=== PATIENT | male | born 1955 | race Caucasian/White ===

== ENCOUNTER 2017-07-02 13:23 | Observation (INO) ==
[2017-07-02] MEDS ORDERED: LACTATED RINGERS 1,000 ML IV SCH (13:30)
--- NOTE | 2017-07-02 13:32 | Emergency Department Note ---
Neuro HPI - General Chief Complaint: Neuro Symptoms/Deficit Stated Complaint: Neuro deficit Time Seen by Provider: 07/02/17 13:26 Source: patient, family Mode of arrival: wheelchair Limitations: no limitations - History of Present Illness HPI Narrative: This patient had brain surgery 10 days ago with an extensive craniotomy for a right sided aneurysm repair. This morning he woke up with a little bit of numbness to the left side of his body and some shakiness. He does drink alcohol and his intake is supposed to be on the low side for the last week or so. He has had alcohol withdrawal seizures in the past. Has not had specific muscle weakness. No specific headache. - Related Data Home Medications: Home Medications Medication Instructions Recorded Confirmed Bacitracin [Bacitracin] 07/02/17 Potassium Chloride [K-Tab ER] 20 meq PO BID 07/02/17 07/02/17 levETIRAcetam [Levetiracetam] 1,000 mg PO BID 07/02/17 07/02/17 Allergies/Adverse Reactions: Allergies Allergy/AdvReac Type Severity Reaction Status Date / Time No Known Drug Allergies Allergy Verified 07/02/17 13:27 Review of Systems All systems ED: reviewed and negative except as stated. Past Medical History - Past Medical History [facility] Narrative: Medical History Abnormal laboratory test (Chronic) Tobacco use (Chronic) Benign prostate hyperplasia (Chronic) Basal cell carcinoma of skin of other parts of face (Chronic) Frequent urination (Chronic) Alcohol abuse (Chronic) Muscle weakness (Chronic) Stiffness in joint (Chronic) Joint pain (Chronic) Fatigue (Chronic) Insomnia (Chronic) Shoulder pain, left (Chronic) Degenerative disc disease, lumbar (Chronic) Neoplasm of uncertain behavior of skin (Chronic) Chronic obstructive pulmonary disease (Chronic) Hernia, inguinal, right (Chronic) History of meniscal tear (Chronic) Back pain (Chronic) Past Surgical History H/O hernia repair (Acute) H/O knee surgery (Chronic) History of back surgery (Chronic) Family History Mother Malignant neoplasm of breast Malignant neoplasm of lung Sister Myocardial Infarction - Social History smoking status: Current every day smoker Physical Exam Limitations: no limitations General appearance: alert Head: other (She has extensive incisions to the head which are healing well.) Eye: Present: normal appearance ENT: normal exam Neck: Present: normal inspection Chest: Present: normal inspection Respiratory: Present: normal lung sounds bilaterally Cardiovascular: Present: regular rate, normal rhythm, normal heart sounds Abdominal: Present: soft. Absent: distention, tenderness Neurological: Present: alert Motor strength - LUE: 5/5 Motor strength - RUE: 5/5 Psychiatric: Present: normal affect, normal mood Skin: Present: warm, dry, intact Course Vital Signs Temperature 98.4 F 07/02/17 13:23 Pulse Rate 56 L 07/02/17 13:23 Respiratory Rate 18 07/02/17 13:23 Blood Pressure 146/114 07/02/17 13:23 Pulse Oximetry (%) 99 07/02/17 13:23 Temperature 98.4 F 07/02/17 13:23 Pulse Rate 59 L 07/02/17 14:58 Respiratory Rate 21 07/02/17 15:23 Blood Pressure 126/69 07/02/17 15:23 Pulse Oximetry (%) 100 07/02/17 14:58 Neuro Symptoms/Deficit - MDM Narrative Medical decision making narrative: Patient CT scan is unremarkable from an acute standpoint. Lab work also unremarkable with an alcohol level less than 0.01. Patient did have an NIH score of 4 which has improved. He is an ABCD score of 6. I did discuss this with his neurosurgeon Dr. Andres who said he has had multiple CT scans the last 9 months with nothing too worrisome. Patient is able to start aspirin as of today according to Dr. Andres. Also could be started on a statin which the patient does not think he is ever taken. We do not see evidence of an echocardiogram in his chart. The patient will be admitted to the hospital by Dr. Do for TIA workup and management. His shakiness resolved dramatically on some Ativan given IV. - Lab Data Lab results reviewed: Yes I reviewed the patient's lab results. Result diagrams: 07/02/17 13:27 07/02/17 13:27 Lab Results 07/02/17 07/02/17 07/02/17 Range/Units 13:27 13:27 13:27 WBC 8.0 (4.5-11.0) K/mcL RBC 4.37 L (4.50-5.90) M/mcL Hgb 14.2 (13.5-16.5) g/dL Hct 43.1 (41.0-55.0) % MCV 98.5 (80.0-100.0) fL MCH 32.5 (26.0-34.0) pg MCHC 33.0 (31.0-36.0) g/dL RDW 15.0 H (11.5-14.5) % Plt Count 523 H (140-440) K/mcL MPV 7.4 (7.4-10.4) fL Gran % 57.4 (38.0-78.0) % Lymph % (Auto) 27.1 (15.5-49.0) % [place] % (Auto) 14.1 H (1.0-12.0) % Eos % (Auto) 1.0 (0.0-7.0) % Baso % (Auto) 0.4 (0.0-2.0) % Gran # 4.6 (1.8-8.0) K/mcL Lymph # (Auto) 2.2 (1.5-4.8) K/mcL [place] # (Auto) 1.1 H (0.1-0.9) K/mcL Eos # (Auto) 0.1 (0.0-0.7) K/mcL Baso # (Auto) 0 (0.0-0.3) K/mcL Sodium 138 (133-145) mmol/L Potassium 4.0 (3.3-5.1) mmol/L Chloride 99 (96-108) mmol/L Carbon Dioxide 25 (22-30) mmol/L Anion Gap 14.0 (8-16) BUN 9 (8-23) mg/dl Creatinine 0.7 (0.7-1.2) mg/dl GFR Calculation 102 Glucose 106 H (70-105) mg/dL Calcium 9.4 (8.6-10.4) mg/dl Total Bilirubin 0.3 (0.0-1.0) mg/dL AST 20 (0-37) U/l ALT 13 (0-40) U/l Alkaline Phosphatase 79 (39-117) U/L Troponin T < 0.01 (0-0.03) ng/ml Total Protein 7.3 (5.9-8.4) gm/dL Albumin 4.2 (3.2-5.2) gm/dL Globulin 3.1 (2.2-3.7) gm/dL Albumin/Globulin Ratio 1.4 (1.0-2.3) Ethyl Alcohol (<0.010) gm/dl 07/02/17 Range/Units 13:27 WBC (4.5-11.0) K/mcL RBC (4.50-5.90) M/mcL Hgb (13.5-16.5) g/dL Hct (41.0-55.0) % MCV (80.0-100.0) fL MCH (26.0-34.0) pg MCHC (31.0-36.0) g/dL RDW (11.5-14.5) % Plt Count (140-440) K/mcL MPV (7.4-10.4) fL Gran % (38.0-78.0) % Lymph % (Auto) (15.5-49.0) % [place] % (Auto) (1.0-12.0) % Eos % (Auto) (0.0-7.0) % Baso % (Auto) (0.0-2.0) % Gran # (1.8-8.0) K/mcL Lymph # (Auto) (1.5-4.8) K/mcL [place] # (Auto) (0.1-0.9) K/mcL Eos # (Auto) (0.0-0.7) K/mcL Baso # (Auto) (0.0-0.3) K/mcL Sodium (133-145) mmol/L Potassium (3.3-5.1) mmol/L Chloride (96-108) mmol/L Carbon Dioxide (22-30) mmol/L Anion Gap (8-16) BUN (8-23) mg/dl Creatinine (0.7-1.2) mg/dl GFR Calculation Glucose (70-105) mg/dL Calcium (8.6-10.4) mg/dl Total Bilirubin (0.0-1.0) mg/dL AST (0-37) U/l ALT (0-40) U/l Alkaline Phosphatase (39-117) U/L Troponin T (0-0.03) ng/ml Total Protein (5.9-8.4) gm/dL Albumin (3.2-5.2) gm/dL Globulin (2.2-3.7) gm/dL Albumin/Globulin Ratio (1.0-2.3) Ethyl Alcohol < 0.010 (<0.010) gm/dl - Radiology Data Radiology results reviewed: Yes I reviewed the patient's radiology results. Disposition Pt seen by BULLARD OPERATOR/PA only: No Clinical Impression: Transient cerebral ischemia Disposition: Xfer As Inpt ([facility]) Condition: Good Referrals: Gael Vaughn MD [Primary Care Provider] - Time of Disposition: 15:40
--- NOTE | 2017-07-02 14:01 | Cat Scan Report ---
CLINICAL INFORMATION: History of right middle cerebral artery aneurysm repair. History of right subdural hematoma. Patient has a history of alcoholism. COMPARISON: Previous preoperative CT scan dated 05/22/[address] scan dated 06/22/2017. These were performed at [facility] TECHNIQUE: Axial noncontrast-enhanced images through the brain. FINDINGS: There is a large left frontoparietal craniectomy defect. There are changes of previous right frontal craniotomy. There are surgical clips consistent with operative repair of a right middle cerebral artery bifurcation aneurysm. Clips appear unchanged. Previous examination demonstrated subarachnoid hemorrhage within the right sylvian fissure. This has resolved. There is a thin right frontal subdural hematoma. This contains both dense and hypodense blood. This has decreased minimally in size since previous examination and the acute hemorrhage has decreased in attenuation. No new intra-axial or extra-axial hemorrhage. No new subdural hematoma. 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 No new focal intra-axial attenuation abnormalities. No localized mass effect. Brainstem and cerebellum are negative. IMPRESSION: 1. Status post surgical repair of a right middle cerebral artery aneurysm. Interval resolution of right-sided subarachnoid hemorrhage 2. 5 mm thick right subdural hematoma. There has been some maturational change since 06/22/2017. There is mild mass effect but no midline shift or uncal herniation 3. 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 No acute abnormality. The exam was performed using radiation dose optimization techniques including, but not limited to, automated exposure control, adjustment of the mA and/or kV according to patient size and use of iterative reconstruction technique. Interpreted and Authenticated by: Feng Grullon 07/02/17
[2017-07-02] MEDS ORDERED: LORazepam 2 MG/ML VIAL ONE (14:06)
[2017-07-02] MEDS ORDERED: LORazepam 2 MG/ML VIAL IV ONE (14:06)
[2017-07-02 14:17] LABS: Basophils # (Auto) 0 K/mcL (0.0-0.3); Basophils % (Auto) 0.4 % (0.0-2.0); Eosinophils # (Auto) 0.1 K/mcL (0.0-0.7); Granulocytes % (Auto) 57.4 % (38.0-78.0); Lymphocytes # (Auto) 2.2 K/mcL (1.5-4.8); Lymphocytes % (Auto) 27.1 % (15.5-49.0); Mean Cell Volume 98.5 fL (80.0-100.0); Mean Corpuscular Hemoglobin 32.5 pg (26.0-34.0); Monocytes # (Auto) 1.1 K/mcL (0.1-0.9); Monocytes % (Auto) 14.1 % (1.0-12.0); Platelet Count 523 K/mcL (140-440); RBC 4.37 M/mcL (4.50-5.90)
[2017-07-02 14:38] LABS: ALT/SGPT 13 U/l (0-40); Albumin 4.2 gm/dL (3.2-5.2); Albumin/Globulin Ratio 1.4 (1.0-2.3); Alkaline Phosphatase 79 U/L (39-117); Blood Urea Nitrogen 9 mg/dl (8-23)
[2017-07-02] MEDS ORDERED: ONDANSETRON 4 MG/2 ML VIAL IV PRN ×2 (16:38→17:25)
[2017-07-02] MEDS ORDERED: oxyCODONE/APAP 5/325MG TABLET PO PRN (16:38)
[2017-07-02] MEDS ORDERED: NALOXONE HCL 0.4 MG/ML VIAL IV PRN ×2 (16:38→17:25)
[2017-07-02] MEDS ORDERED: levETIRAcetam 1,500 MG in 0.9 % SODIUM CHLORIDE 100 ML IV ONE (17:25)
[2017-07-02] MEDS ORDERED: THIAMINE 100 MG in 0.9 % SODIUM CHLORIDE 50 ML IV SCH (17:25)
[2017-07-02] MEDS: LACTATED RINGERS 1,000 ML IV SCH ×2 (17:47→22:39)
--- NOTE | 2017-07-02 19:37 | Internal Med History&Physical ---
Medical - H&P: HPI Patient information: Note initiated : 07/02/17 at 7:35 pm Service Date, if different from initiated Date: [] Patient: Darwin Ayala 62 y/o M admitted on 07/02/17 for Neuro deficit. Chief Complaint: [] History of present illness: Mr. Ayala is a 62 year old Male with h/o significant etoh intake recent [employer] surgery for right sided aneurysm presents to the E today for evaluation of left sided weakness The patient notes he woke up today with numbness on his left hand, that travel down his left leg, then he had shaking movements on his left and left leg and then his whole body. After which he felt significantly weak. The patient had weakness predominantly on the left side of the body. The patient therefore presented to the emergency room for further evaluation. The patient notes that this has happened 3 times today and therefore it was concerning. The patient was seen in the ED, at presentation the patient had weakness in the left side, left-sided facial droop, and then he also developed some shaking in the ED which resolved after giving Ativan. Given that the patient had weakness on the left side some facial droop the patient was considered to be a patient with transient ischemic attack and was presented to the hospitalist for further management. On reviewing the history it seems that the patient had a seizure, simple seizure with secondary generalization with preservation of consciousness. The patient had [employer] MECH[employer]IC surgery 10 days ago. Is on Keppra 1250 twice a day. I spoke with the patient's neurosurgeon who noted that the patient has had multiple CT angios done and there is no significant atherosclerotic disease in the carotids or intracranial vessels. Given the history it is likely that the patient either has alcohol withdrawal seizures or just seizures as the patient has recently had seen a surgery. The patient facial droop has been there since Thursday according to the daughter. He is okay starting the patient on a baby aspirin for CVA prophylaxis. The patient is being admitted to the hospital for observation overnight All systems: reviewed and no additional remarkable complaints except as stated ( Negative except as per HPI) Medical - H&P: PMH Medical history: Medical History Abnormal laboratory test (Chronic) Tobacco use (Chronic) Benign prostate hyperplasia (Chronic) Basal cell carcinoma of skin of other parts of face (Chronic) Frequent urination (Chronic) Alcohol abuse (Chronic) Muscle weakness (Chronic) Stiffness in joint (Chronic) Joint pain (Chronic) Fatigue (Chronic) Insomnia (Chronic) Shoulder pain, left (Chronic) Degenerative disc disease, lumbar (Chronic) Neoplasm of uncertain behavior of skin (Chronic) Chronic obstructive pulmonary disease (Chronic) Hernia, inguinal, right (Chronic) History of meniscal tear (Chronic) Back pain (Chronic) Surgical history: Past Surgical History H/O hernia repair (Acute) H/O knee surgery (Chronic) History of back surgery (Chronic) Pertinent family history: Family History Mother Malignant neoplasm of breast Malignant neoplasm of lung Sister Myocardial Infarction Medical - H&P: Meds Home Medications Medication Instructions Recorded Confirmed Type Bacitracin [Bacitracin] 07/02/17 History Potassium Chloride [K-Tab ER] 20 meq PO BID 07/02/17 07/02/17 History levETIRAcetam [Levetiracetam] 1,000 mg PO BID 07/02/17 07/02/17 History Allergies Allergy/AdvReac Type Severity Reaction Status Date / Time No Known Drug Allergies Allergy Verified 07/02/17 13:27 Medical - H&P: Exam - Constitutional Vitals: Temp Pulse Resp BP Pulse Ox 98.6 F 47 L 18 156/76 98 07/02/17 17:45 07/02/17 17:45 07/02/17 17:45 07/02/17 17:45 07/02/17 17:45 Exam: GENERAL: The patient is a well-developed, well-nourished in no apparent distress. Is alert and oriented x3. VITAL SIGNS: Reviewed and as noted elsewhere. HEENT: Head is normocephalic and atraumatic. Extraocular muscles are intact. Pupils are equal, round, and reactive to light. Nares appeared normal. Mouth appears any without lesions. Mucous membranes are moist. NECK: Normal to inspection, Supple, No lymphadenopathy or thyromegaly. LUNGS: Air entry equal on both sides, no wheezing, crackles or rhonchi noted. No accessory muscles of respiration HEART: Regular rate and rhythm normal, S1 and S2 heard, no Gallop, S3 or Rub Noted, No Gross murmur heard. ABDOMEN: Soft, nontender, and nondistended. Positive bowel sounds. No hepatosplenomegaly was noted. EXTREMITIES: No cyanosis, clubbing, rash, lesions or edema. NEUROLOGIC: Patient has mild facial droop on the left side, rest of the cranial nerves are normal, exam shows 5 out of 5 strength in the bilateral upper extremities, normal sensation in bilateral upper extremities. Patient has 4+ strength in the left lower leg, 5 strength in the right lower extremity. No cerebellar symptoms. PSYCHIATRIC: Normal affect, Normal Mood. Appropriate Behavior. SKIN: No ulceration or wounds noted, No jaundice, No rash noted. Medical - H&P: Reslt - Labs CBC & Chem 7: 07/02/17 13:27 07/02/17 13:27 Labs: Short CBC 07/02/17 Range/Units 13:27 WBC 8.0 (4.5-11.0) K/mcL Hgb 14.2 (13.5-16.5) g/dL Hct 43.1 (41.0-55.0) % Plt Count 523 H (140-440) K/mcL BMP 07/02/17 13:27 Sodium 138 Potassium 4.0 Chloride 99 Carbon Dioxide 25 BUN 9 Creatinine 0.7 Glucose 106 H Calcium 9.4 Cardiac Enzymes 07/02/17 Range/Units 13:27 Troponin T < 0.01 (0-0.03) ng/ml Liver Function 07/02/17 Range/Units 13:27 Total Bilirubin 0.3 (0.0-1.0) mg/dL AST 20 (0-37) U/l ALT 13 (0-40) U/l Alkaline Phosphatase 79 (39-117) U/L Albumin 4.2 (3.2-5.2) gm/dL Medical - H&P: A/P - Narrative A/P Narrative: A/P Simple seizure with secondary generalization Possible TIA 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 Seizure protocol, IV thiamine, alcohol with meals to prevent alcohol withdrawal. As needed Ativan if seizures or severe anxiety. Increased dose of Keppra to 1500 mg twice a day. IV Keppra 1500 mg today. anticipate to be discharged tomorrow if all workup is negative. regular diet full code DVT SCD Social History - Social History household members: alone marital status: - Tobacco smoking status: Current every day smoker - Tobacco Type tobacco type: cigarettes - Cigarette Details per day: 30 - Alcohol alcohol intake frequency: 2+ drinks per day - Substance use substance use type: marijuana
[2017-07-02] MEDS: IPRATROPIUM/ALBUTEROL 3 ML AMPUL.NEB NEB SCH (19:39)
[2017-07-02] MEDS ORDERED: NICOTINE 21 MG PATCH TOPICAL ONE (19:42)
[2017-07-02] MEDS: 0.9 % SODIUM CHLORIDE 10 ML SYRINGE IV SCH (22:00)
[2017-07-02] MEDS ORDERED: 0.9 % SODIUM CHLORIDE 10 ML SYRINGE IV SCH (22:00)
[2017-07-02] MEDS: THIAMINE 100 MG in 0.9 % SODIUM CHLORIDE 50 ML IV SCH (22:24)
[2017-07-03] MEDS: POTASSIUM CHLORIDE 20 MEQ TABLET PO SCH ×2 (00:26→08:25)
[2017-07-03] MEDS: oxyCODONE/APAP 5/325MG TABLET PO PRN ×3 (00:44→13:36)
[2017-07-03] MEDS: IPRATROPIUM/ALBUTEROL 3 ML AMPUL.NEB NEB SCH ×3 (00:53→12:04)
[2017-07-03] MEDS: LORazepam 2 MG/ML VIAL IV PRN ×2 (05:35→09:51)
[2017-07-03] MEDS: 0.9 % SODIUM CHLORIDE 10 ML SYRINGE IV SCH ×2 (05:36→14:06)
[2017-07-03] MEDS: LACTATED RINGERS 1,000 ML IV SCH ×4 (07:37→13:34)
[2017-07-03] MEDS ORDERED: levETIRAcetam 500 MG TABLET PO SCH (09:00)
[2017-07-03] MEDS ORDERED: ASPIRIN 81 MG TAB.CHEW PO SCH (09:00)
[2017-07-03 09:20] LABS: HDL Cholesterol 56 mg/dl (>40); LDL Cholesterol,Calculated 106 mg/dl (SEE CHART)
[2017-07-03 09:24] LABS: Estimated Average Glucose(eAG) 91 mg/dL; Hemoglobin A1C 4.8 % HGB (4.0-6.0)
[2017-07-03] MEDS: THIAMINE 100 MG in 0.9 % SODIUM CHLORIDE 50 ML IV SCH (09:58)
--- NOTE | 2017-07-03 10:18 | Discharge Summary ---
Medical - DS: Prov Patient information: Note initiated : 07/03/17 at 10:14 am Service Date, if different from initiated Date: [] Patient: Darwin Ayala 62 y/o M admitted on 07/02/17 for Neuro Deficit/ Transient Cerebral Ischemia. Chief Complaint: [] Date of admission: 07/02/17 17:20 Discharge date: 07/03/17 Primary care physician: Braulio Vaughn Admitting clinician: Blanche Do Consults: 07/02/17 15:23 Consult to Physician [CONS] Stat Comment: Consulting Provider: Blanche Do Reason For Exam: Physician to Consult Discharging clinician: Blanche Do Medical - DS: Meds - Discharge Medications Prescriptions: Atorvastatin [Lipitor] 20 mg PO HS #30 tab Active and Home Medications: Home Medications Bacitracin [Bacitracin] 07/02/17 [History Last Taken Unknown] Potassium Chloride [K-Tab ER] 20 meq PO BID 07/02/17 [History Confirmed Last Taken Unknown] levETIRAcetam [Levetiracetam] 1,000 mg PO BID 07/02/17 [History Confirmed Last Taken Unknown] Medical - DS: Hosp Hospital course: MMr. Ayala is a 62 year old Male with h/o significant etoh intake recent [employer] surgery for right sided aneurysm presents to the E today for evaluation of left sided weakness The patient notes he woke up today with numbness on his left hand, that travel down his left leg, then he had shaking movements on his left and left leg and then his whole body. After which he felt significantly weak. The patient had weakness predominantly on the left side of the body. The patient therefore presented to the emergency room for further evaluation. The patient notes that this has happened 3 times today and therefore it was concerning. The patient was seen in the ED, at presentation the patient had weakness in the left side, left-sided facial droop, and then he also developed some shaking in the ED which resolved after giving Ativan. Given that the patient had weakness on the left side some facial droop the patient was considered to be a patient with transient ischemic attack and was presented to the hospitalist for further management. On reviewing the history it seems that the patient had a seizure, simple seizure with secondary generalization with preservation of consciousness. 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 Is on Keppra 1250 twice a day. I spoke with the patient's neurosurgeon who noted that the patient has had multiple CT angios done and there is no significant atherosclerotic disease in the carotids or intracranial vessels. Given the history it is likely that the patient either has alcohol withdrawal seizures or just seizures as the patient has recently had seen a surgery. The patient facial droop has been there since Thursday according to the daughter. He is okay starting the patient on a baby aspirin for CVA prophylaxis. Patient was monitored overnight, no acute events on tele noted, Echo is neg, the patient is on statin and ASA for prophyalxis against CVA. I have increased the dose of keppra to 1500mg. 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 Use of ASA cleared by patients neurosurgeon. The patient has been educated regarding the risks of taking this medications, he will be following up a neurologist next week, and I have advised him to speak with them the need for asa/ statin. Should he continue on asa, he should use it with food, not on empty stomach, and he will need to have his LFT checked by his doctor in 3-6 weeks, dandy in light of his etoh use. Rest of the stay in the hospital was unremarkable. Discharge diagnosis: Seizure/ TIA - Time Spent with Patient Total time spent providing and/or coordinating discharge services: Less than 30 minutes Medical - DS: Exam - Constitutional Vitals: Vital Signs Temp Pulse Pulse Resp BP BP Pulse Ox 07/03/17 07:47 61 16 96 07/03/17 07:44 97.5 F 16 147/75 100 07/03/17 04:00 98.8 F 65 16 118/73 97 07/03/17 00:00 98.1 F 60 16 131/82 98 07/02/17 20:00 98.9 F 59 L 18 140/59 99 07/02/17 19:42 60 14 98 07/02/17 19:15 98.6 F 54 L 18 156/76 98 07/02/17 17:45 98.6 F 47 L 18 156/76 98 07/02/17 17:29 98.4 F 52 L 20 131/72 100 07/02/17 17:16 50 L 21 144/83 100 07/02/17 17:01 51 L 19 143/74 100 07/02/17 17:00 47 L 18 100 07/02/17 16:46 59 L 18 143/121 100 07/02/17 16:32 51 L 19 100 07/02/17 16:31 52 L 20 131/72 100 07/02/17 16:16 54 L 21 141/75 100 07/02/17 16:07 19 134/74 07/02/17 15:49 15 138/75 07/02/17 15:46 20 138/75 07/02/17 15:31 21 143/73 07/02/17 15:23 21 126/69 07/02/17 15:16 22 126/69 07/02/17 15:01 15 139/81 07/02/17 14:58 59 L 18 123/78 100 07/02/17 14:46 66 25 H 123/78 98 07/02/17 14:31 55 L 23 H 134/74 96 07/02/17 14:16 51 L 21 130/70 99 07/02/17 14:01 53 L 15 136/78 100 07/02/17 13:55 54 L 16 151/79 100 07/02/17 13:46 61 19 151/79 99 07/02/17 13:23 98.4 F 56 L 18 146/114 99 Intake and Output 07/02/17 07/03/17 07/03/17 21:59 05:59 13:59 Intake Total 1215 / 1215 1101 / 1101 Output Total 326 / 326 475 / 475 Balance 1215 / 1215 775 / 775 -475 / -475 Intake: IV 1115 / 1115 1051 / 1051 Lactated Ringers 1,000 ml @ 250 508 / 508 1000 / 1000 mls/hr IV .Q4H [facility] Rx#: [id number] Vitamin B1 100 mg In Sodium 51 / 51 Chloride 0.9% 50 ml @ 50 mls/hr IV DAILY [facility] Rx#:[id number] Oral 100 / 100 50 / 50 Output: Void Amount 325 / 325 475 / 475 # of times incontinent of urine Other: Meal Dinner Percent of Meal Consumed 100% Feeding Ability Assist with Tray Set Up # Voids 1 Weight 156 lb 8 oz Additional comments: Constitutional; Afebrile, cooperative, alert, not in distress. Eyes- No icterus, , No periorbital swelling Ears- Ext ear normal, hearing normal to conversation. Neck- Midline trachea, supple Respiratory system: Air Entry equal on both sides, No crackles or wheezing, no rhonchi. CVS- Rate rhythm regular, S1,S2 heard, no gallop, no rub. Abdomen- Soft nontender abdomen, no organomegaly, no tenderness, no guarding or rigidity, [employer]ER- AOOx3, moving all extremities, no gross focal deficit noted. Medical - DS: Data Labs on day of discharge: Labs from last 24 hours 07/03/17 07/02/17 07/02/17 08:13 13:27 13:27 WBC RBC Hgb Hct MCV MCH MCHC RDW Plt Count MPV Gran % Lymph % (Auto) [place] % (Auto) Eos % (Auto) Baso % (Auto) Gran # Lymph # (Auto) [place] # (Auto) Eos # (Auto) Baso # (Auto) Sodium Potassium Chloride Carbon Dioxide Anion Gap BUN Creatinine GFR Calculation Glucose Hemoglobin A1c 4.8 Estim Average Glucose 91 Calcium Total Bilirubin AST ALT Alkaline Phosphatase Troponin T < 0.01 Total Protein Albumin Globulin Albumin/Globulin Ratio Triglycerides 80 Cholesterol 177 LDL Cholesterol, Calc 106 H Non-HDL Cholesterol 121 HDL Cholesterol 56 Ethyl Alcohol < 0.010 07/02/17 07/02/17 13:27 13:27 WBC 8.0 RBC 4.37 L Hgb 14.2 Hct 43.1 MCV 98.5 MCH 32.5 MCHC 33.0 RDW 15.0 H Plt Count 523 H MPV 7.4 Gran % 57.4 Lymph % (Auto) 27.1 [place] % (Auto) 14.1 H Eos % (Auto) 1.0 Baso % (Auto) 0.4 Gran # 4.6 Lymph # (Auto) 2.2 [place] # (Auto) 1.1 H Eos # (Auto) 0.1 Baso # (Auto) 0 Sodium 138 Potassium 4.0 Chloride 99 Carbon Dioxide 25 Anion Gap 14.0 BUN 9 Creatinine 0.7 GFR Calculation 102 Glucose 106 H Hemoglobin A1c Estim Average Glucose Calcium 9.4 Total Bilirubin 0.3 AST 20 ALT 13 Alkaline Phosphatase 79 Troponin T Total Protein 7.3 Albumin 4.2 Globulin 3.1 Albumin/Globulin Ratio 1.4 Triglycerides Cholesterol LDL Cholesterol, Calc Non-HDL Cholesterol HDL Cholesterol Ethyl Alcohol Medical - DS: A/P - Patient/Caregiver Discharge Instructions Activity: increase activity as tolerated Diet: Regular Diet Additional Instructions: Take asa with food, if you notice bleeding, black stools or worsening headaches go to the ER or talk to your neurosurgeon Take atorvastatin on daily basis, you should have your liver function checked in 3-6 weeks to make sure that the medication is not causing any side effects Go to the ER if worsening symptoms, chest pain, shortness of breath, fever or any other acute concerning symptom I want you to take 1500mg of keppra twice daily. You are presently taking 1250mg twice daily. Please establish with a PCP soon for your chronic health care needs. - Follow up Plan Follow up with: Hitesh Andres [Physician] - 07/07/17 10:00 am (Please continue with your previous scheduled appointment.) Disposition: Home, Self-Care Prognosis: Fair Rehab Potential: Fair I certify that the patient requires SNF services: No Overall status at discharge: patient is back to baseline Medical - DS: Qual - VTE Deep Vein Thrombosis/Pulmonary Embolism Present on Admission: Yes
[2017-07-03] MEDS ORDERED: ATORVASTATIN 20 MG TABLET PO SCH (21:00)
== END 2017-07-03 13:25 | disposition home or self-care (01) ==
LOC: ED 13:23 → ICU 13:23
PROVIDERS: ADMIT Internal Medicine; ATTEND Internal Medicine

== ENCOUNTER 2018-01-01 06:56 | Inpatient (IN) ==
[~2018-01-01 06:56] MED LIST: ceFAZolin 1 GM VIAL IV SCH
[2018-01-01 08:17] LABS: Basophils # (Auto) 0 K/mcL (0.0-0.3); Basophils % (Auto) 0.7 % (0.0-2.0); Eosinophils # (Auto) 0.1 K/mcL (0.0-0.7); Eosinophils % (Auto) 1.5 % (0.0-7.0); Lymphocytes # (Auto) 1.4 K/mcL (1.5-4.8); Lymphocytes % (Auto) 24.4 % (15.5-49.0); Mean Cell Volume 98.5 fL (80.0-100.0); Mean Corpuscular HGB Conc 33.1 g/dL (31.0-36.0); Mean Corpuscular Hemoglobin 32.6 pg (26.0-34.0); Monocytes # (Auto) 0.7 K/mcL (0.1-0.9); Monocytes % (Auto) 11.4 % (1.0-12.0); Platelet Count 285 K/mcL (140-440); RBC 4.55 M/mcL (4.50-5.90); Red Cell Distribution Width 13.6 % (11.5-14.5)
[2018-01-01 08:35] LABS: ALT/SGPT 11 U/l (0-40); Albumin 4.3 gm/dL (3.2-5.2); Albumin/Globulin Ratio 1.7 (1.0-2.3); Alkaline Phosphatase 69 U/L (39-117); Blood Urea Nitrogen 10 mg/dl (8-23)
[2018-01-01 08:44] LABS: Appearance,Urine CLEAR; Bilirubin,Urine NEG (NEG); Color,Urine YELLOW; Glucose,Urine (UA) NEGATIVE (NEG); Leukocyte Esterase,Urine NEG /uL (NEG); Protein,Urine NEG (NEG); Specific Gravity,Urine 1.017 (1.000-1.035); Urine Blood NEG mg/dL (<0.03); Urobilinogen,Urine NEG (NEG)
[2018-01-01] MEDS ORDERED: IPRATROPIUM/ALBUTEROL 3 ML AMPUL.NEB NEB ONE (10:25)
[2018-01-01] MEDS ORDERED: MIDAZOLAM 5 MG/5 ML VIAL ONE (10:51)
[2018-01-01] MEDS ORDERED: PHENYLEPHRINE 10 MG/ML VIAL ONE (10:51)
[2018-01-01] MEDS ORDERED: NEOSTIGMINE 1 MG/ML VIAL ONE (10:51)
[2018-01-01] MEDS ORDERED: LIDOCAINE HCL/PF 100 MG/5 ML SYRINGE IV ONE (10:51)
[2018-01-01] MEDS ORDERED: HYDROmorphone 2 MG/ML VIAL ONE (10:51)
[2018-01-01] MEDS ORDERED: ONDANSETRON 4 MG/2 ML VIAL ONE (10:51)
[2018-01-01] MEDS ORDERED: ePHEDrine 50 MG/ML AMPUL IV ONE (10:51)
[2018-01-01] MEDS ORDERED: KETAMINE 10 MG/ML ML ONE (10:51)
[2018-01-01] MEDS ORDERED: GLYCOPYRROLATE 0.2 MG/ML VIAL IV ONE (10:51)
[2018-01-01] MEDS ORDERED: PROPOFOL 200 MG/20 ML VIAL IV ONE (10:51)
[2018-01-01] MEDS ORDERED: DEXAMETHASONE 10 MG/ML VIAL ONE (10:51)
[2018-01-01] MEDS ORDERED: fentaNYL 100 MCG/2 ML VIAL IV ONE (10:51)
[2018-01-01] MEDS ORDERED: ROCURONIUM 10 MG/ML ML IV ONE (10:51)
[2018-01-01] MEDS ORDERED: SUCCINYLCHOLINE 20 MG/ML ML IV ONE (10:51)
[2018-01-01] MEDS ORDERED: GELATIN SPONGE,ABSORBABLE 1 EACH SPONGE TOPICAL ONE (14:48)
[2018-01-01] MEDS ORDERED: THROMBIN (BOVINE) 5,000 UNIT VIAL TOPICAL ONE (14:48)
[2018-01-01] MEDS ORDERED: PROMETHAZINE 25 MG/ML VIAL IV PRN (15:49)
[2018-01-01] MEDS ORDERED: HYDROmorphone 2 MG/ML VIAL IV PRN (15:49)
[2018-01-01] MEDS ORDERED: MEPERIDINE 25 MG/ML SYRINGE IV PRN (15:49)
[2018-01-01] MEDS ORDERED: METHOCARBAMOL 1,000 MG/10 ML VIAL IV PRN (15:49)
[2018-01-01] MEDS ORDERED: fentaNYL 100 MCG/2 ML VIAL IV PRN (15:49)
[2018-01-01] MEDS ORDERED: diphenhydrAMINE 50 MG/ML VIAL IV PRN (15:49)
[2018-01-01] MEDS ORDERED: ACETAMINOPHEN 1,000 MG/100 ML BOTTLE IV ONE (15:49)
[2018-01-01] MEDS ORDERED: METOPROLOL TARTRATE 5 MG/5 ML VIAL IV PRN (15:49)
[2018-01-01] MEDS ORDERED: ONDANSETRON 4 MG/2 ML VIAL IV PRN (15:49)
[2018-01-01] MEDS ORDERED: FLUMAZENIL 0.1 MG/ML ML IV PRN (15:49)
[2018-01-01] MEDS ORDERED: IPRATROPIUM/ALBUTEROL 3 ML AMPUL.NEB NEB PRN (15:49)
[2018-01-01] MEDS ORDERED: NALOXONE HCL 0.4 MG/ML VIAL IV PRN (15:49)
[2018-01-01] MEDS ORDERED: ATROPINE SULFATE 0.4 MG/ML VIAL IV PRN (15:49)
[2018-01-01] MEDS ORDERED: ePHEDrine 50 MG/ML AMPUL IV PRN (15:49)
[2018-01-01] MEDS ORDERED: LORazepam 2 MG/ML VIAL IV ONE (15:52)
[2018-01-01] MEDS ORDERED: ONDANSETRON ODT 4 MG TABLET SL PRN (15:55)
[2018-01-01] MEDS ORDERED: ALPRAZolam 0.5 MG TABLET PO PRN (15:55)
--- NOTE | 2018-01-01 15:55 | Brief Operative Note ---
Date of procedure: 01/01/18 Pre-op diagnosis: cervical fracture/dislocation C5/6 Post-op diagnosis: same Procedure: A and PSIF C5/6 Grafts/Implants: Yes (depuy) Anesthesia: GETA Complications: none Surgeon: Joe Overton Weight And Balance Control Agent: Richi Barone Estimated blood loss (cc): 100 Specimens Removed/Pathology: none sent Condition: stable Disposition: PACU
[2018-01-01] MEDS ORDERED: HYDROCODONE/APAP 7.5/325MG TABLET PO PRN (16:01)
[2018-01-01] MEDS ORDERED: BUPIVACAINE 0.25% 50 ML VIAL IJ ONE (16:03)
[2018-01-01] MEDS ORDERED: HYDROmorphone PCA 30 MG/30 ML PCA.VIAL IV PRN (16:10)
[2018-01-01] MEDS ORDERED: LORazepam 2 MG/ML VIAL ONE (16:28)
[2018-01-01] MEDS ORDERED: ceFAZolin 1 GM VIAL IV SCH (19:00)
[2018-01-01] MEDS: VANCOMYCIN 1,000 MG in 0.9 % SODIUM CHLORIDE 250 ML IV SCH (19:12)
[2018-01-01] MEDS: NACL 0.9% W/KCL 20MEQ 1,000 ML IV SCH (20:35)
[2018-01-01] MEDS: levETIRAcetam 500 MG TABLET PO SCH (20:51)
[2018-01-01] MEDS: 0.9 % SODIUM CHLORIDE 10 ML SYRINGE IV SCH (21:54)
[2018-01-02] MEDS: HYDROcodone/APAP 10/325MG TABLET PO PRN ×6 (03:38→21:53)
[2018-01-02] MEDS: METHOCARBAMOL 750 MG TABLET PO PRN ×2 (03:38→21:54)
[2018-01-02] MEDS: VANCOMYCIN 1,000 MG in 0.9 % SODIUM CHLORIDE 250 ML IV SCH (05:11)
[2018-01-02] MEDS: 0.9 % SODIUM CHLORIDE 10 ML SYRINGE IV SCH ×3 (05:24→21:56)
[2018-01-02 06:33] LABS: Blood Urea Nitrogen 10 mg/dl (8-23)
--- NOTE | 2018-01-02 08:01 | Orthopedic Progress Note ---
Subjective Patient information: Note initiated : 01/02/18 at 7:59 am Service Date, if different from initiated Date: [] Patient: Darwin Ayala 62 y/o M admitted on 01/01/18 for C5-6 posterior instrument fusion with possible . Chief Complaint: [S/P C5-6 ACDF WITH POSTERIOR INSTRUMENTED FUSION] PATIENT IS DOING WELL AND IS AMBULATING WELL THOUGH IT HAS BEEN LIMITED. DENIES ANY NEW ONSET LOWER OR UPPER EXTREMITY WEAKNESS/PARESTHESIAS. Principal diagnosis: C5-6 COMPLEX FACET FX WITH INSTABILITY Objective Vital signs: Vital Signs Temp Pulse Resp BP Pulse Ox 01/02/18 07:29 98.8 F 20 136/66 96 01/02/18 03:40 98.8 F 72 20 108/57 95 01/01/18 23:50 97.7 F 80 18 118/74 97 01/01/18 22:40 97 01/01/18 20:56 92 H 121/77 99 01/01/18 19:54 86 135/77 100 01/01/18 19:15 97.2 F 85 12 121/72 99 01/01/18 18:55 81 107/68 98 01/01/18 18:40 84 113/69 98 01/01/18 18:25 85 125/71 90 01/01/18 18:10 85 138/80 01/01/18 17:55 89 115/61 90 01/01/18 17:30 96.5 F L 87 18 117/68 94 01/01/18 17:20 96.9 F L 83 15 120/61 95 01/01/18 17:10 96.3 F L 84 16 106/66 96 01/01/18 17:00 96.0 F L 77 16 101/63 97 01/01/18 16:50 96.8 F L 71 16 106/66 96 01/01/18 16:40 96.8 F L 67 15 141/80 99 01/01/18 16:30 61 15 142/77 99 01/01/18 16:25 69 16 128/69 99 01/01/18 16:22 96.9 F L 69 18 100/59 99 Intake and Output 01/01/18 01/02/18 01/02/18 21:59 05:59 13:59 Intake Total 3250 / 3250 100 / 100 Output Total 3055 / 3055 818 / 818 Balance 195 / 195 -718 / -718 Intake: IV 350 / 350 Vancomycin 1,000 mg In Sodium 250 / 250 Chloride 0.9% 250 ml @ 250 mls/ hr IV Q12H [facility] Rx#:[id number] Oral 100 / 100 IV - Manual Only 2900 / 2900 Output: Drainage 55 / 55 93 / 93 L Anterior 30 / 30 13 / 13 R posterior 25 / 25 80 / 80 Urine Catheter Amount 3000 / 3000 725 / 725 Uretheral (Andrade) 1500 / 1500 Other: Urine Appearance Clear Clear Clear Uretheral (Andrade) Clear Urine Color Pale Dark Yellow Light Milli Uretheral (Andrade) Dark Yellow Weight 155 lb Intake & Output: Intake & Output 01/01/18 01/02/18 01/02/18 21:59 05:59 13:59 Intake Total 3250 / 3250 100 / 100 Output Total 3055 / 3055 818 / 818 Balance 195 / -718 / -718 Weight 155 lb Intake: IV 350 / 350 Vancomycin 1,000 mg In Sodium 250 / 250 Chloride 0.9% 250 ml @ 250 mls/ hr IV Q12H [facility] Rx#:[id number] Oral 100 / 100 IV - Manual Only 2900 / 2900 Output: Drainage 55 / 55 93 / 93 L Anterior 30 / 30 / 13 R posterior 25 / 25 80 / 80 Urine Catheter Amount 3000 / 3000 725 / 725 Uretheral (Andrade) 1500 / 1500 Other: Urine Appearance Clear Clear Clear Uretheral (Andrade) Clear Urine Color Pale Dark Yellow Light Milli Uretheral (Andrade) Dark Yellow Incision: Yes healing, Yes clean and dry Incision clean and dry: Yes Dressing: Yes clean, Yes dry, Yes intact Weight bearing status: full Neurological exam IM: Yes oriented X3, Yes motor sensory intact, Yes neurovascular intact Extremities exam IM: Yes neurovascular intact - Labs CBC & BMP: 01/02/18 04:20 01/02/18 04:20 Labs: Orthopedic Labs 01/01/18 07:25 PT 13.1 INR 1.0 01/02/18 01/01/18 04:20 07:25 Hgb 13.5 14.8 Hct 39.8 L 44.8 Assessment and Plan (1) Cervical spine fracture AMBULATE WITH PT. LIKELY DISCHARGE TO HOME TOMORROW. D/C ANTERIOR DRAIN AND D/C POSTERIOR DRAIN TOMORROW AM. Status: Acute
[2018-01-02] MEDS: levETIRAcetam 500 MG TABLET PO SCH ×2 (08:26→21:54)
[2018-01-02] MEDS: NACL 0.9% W/KCL 20MEQ 1,000 ML IV SCH ×4 (08:28→23:35)
[2018-01-03] MEDS: HYDROcodone/APAP 10/325MG TABLET PO PRN ×2 (02:21→06:53)
[2018-01-03] MEDS: 0.9 % SODIUM CHLORIDE 10 ML SYRINGE IV SCH (04:36)
--- NOTE | 2018-01-03 07:42 | Orthopedic Progress Note ---
Subjective Patient information: Note initiated : 01/03/18 at 7:40 am Service Date, if different from initiated Date: [] Patient: Darwin Ayala 62 y/o M admitted on 01/01/18 for C5-6 posterior instrument fusion with possible . Chief Complaint: [S/P C5-6 ACDF with posterior instrumentation] is doing well and ambulates well w/o assistance. He is anxious to return home with assistance of his daughter. He denies any new onset upper extremity paresthesias or any myelopathic symptoms. Principal diagnosis: C5-6 COMPLEX FACET FX WITH INSTABILITY Objective Vital signs: Vital Signs Temp Pulse Resp BP BP Pulse Ox 01/03/18 06:58 98.3 F 20 142/70 95 01/03/18 04:00 98.5 F 65 12 138/85 95 01/03/18 00:48 98.7 F 72 18 149/92 94 01/03/18 00:00 98.7 F 72 18 149/92 93 01/02/18 19:33 98.1 F 71 16 142/82 01/02/18 16:00 97.8 F 20 120/76 95 01/02/18 11:26 98.9 F 20 130/81 95 Intake and Output 01/02/18 01/03/18 01/03/18 21:59 05:59 13:59 Intake Total 500 / 500 959 / 959 Output Total 1346 / 1346 1675 / 1675 Balance -846 / -846 -716 / -716 -15 Intake: IV 959 / 959 NaCl 0.9% W/KCl 20Meq 1000ML 1, 959 / 959 000 ml @ 75 mls/hr IV .[id number] [facility] Rx#:[id number] Oral 500 / 500 0 / 0 Output: Drainage 15 / 15 L Anterior / R posterior 15 Void Amount 1325 / 1325 1650 / 1650 # of times incontinent of urine 0 / 0 Other: Meal Dinner Percent of Meal Consumed 100% Feeding Ability Independent Urine Appearance Clear Clear Urine Color Bright Yellow Pale Urine Odor Normal Normal # Voids 1 1 Weight 158 lb Intake & Output: Intake & Output 01/02/18 01/03/18 01/03/18 21:59 05:59 13:59 Intake Total 500 / 500 959 / 959 Output Total 1346 / 1346 1675 / 1675 Balance -846 / -846 -716 / -716 - Weight 158 lb Intake: IV 959 / 959 NaCl 0.9% W/KCl 20Meq 1000ML 1, 959 / 959 000 ml @ 75 mls/hr IV .[id number] [facility] Rx#:[id number] Oral 500 / 500 0 / 0 Output: Drainage L Anterior R posterior Void Amount 1325 / 1325 1650 / 1650 # of times incontinent of urine 0 / 0 Other: Meal Dinner Percent of Meal Consumed 100% Feeding Ability Independent Urine Appearance Clear Clear Urine Color Bright Yellow Pale Urine Odor Normal Normal # Voids 1 1 Incision: Yes healing, Yes clean and dry Incision clean and dry: Yes Dressing: Yes clean, Yes dry, Yes intact Weight bearing status: full Neurological exam IM: Yes alert, Yes motor sensory intact, Yes neurovascular intact Extremities exam IM: Yes normal inspection, Yes neurovascular intact - Labs CBC & BMP: 01/03/18 04:10 01/02/18 04:20 Labs: Orthopedic Labs 01/01/18 07:25 PT 13.1 INR 1.0 01/03/18 01/02/18 01/01/18 04:10 04:20 07:25 Hgb 12.8 L 13.5 14.8 Hct 38.0 L 39.8 L 44.8 Assessment and Plan (1) Cervical spine fracture Discharge to home today. D/c posterior ALTAGRACIA drain prior to discharge. Post-op instructions/wound care provided. Status: Acute
--- NOTE | 2018-01-03 07:48 | Discharge Summary ---
Providers - Providers Patient information: Note initiated : 01/03/18 at 7:44 am Service Date, if different from initiated Date: [] Patient: Darwin Ayala 62 y/o M admitted on 01/01/18 for C5-6 posterior instrument fusion with possible . Chief Complaint: [S/P C5-6 ACDF with posterior instrumented fusion] Patient is doing well and ambulates well w/o assistance. His LUE radicular symptoms have resolved. He denies any new onset upper extremity paresthesias or any myelopathic symptoms. Date of admission: 01/01/18 Discharge date: 01/03/18 Attending physician: Joe Overton Hospitalization Hospital course: Post-operatively, the patient was returned to the [facility] where he was provided routine pain management and maintained on prophylactic antibiotics. She ambulated daily with PT. At the time of discharge, the patient is doing well and tolerating all medications well. He is discharged to follow-up with me in approximately 2 weeks. He will call with any questions or concerns whatsoever. Discharge diagnosis: S/P C5-6 ACDF with posterior instrumented fusion Secondary discharge diagnosis: C5-6 complex left facet fracture with instability Reason for admission: The patient was admitted for operative tx of a complex left facet fx Procedures: The patient was taken to the operating room on the date of admission where he under went a C5-6 ACDF with posterior instrumented fusion. The procedure was tolerated well with no complications. Complications: NONE Exam - Exam Incision healing: Yes Incision draining: No Incision red: No Incision swollen: No Incision inflamed: No Clean and dry: Yes Weight bearing status: full Ortho Discharge - Spine - Patient Instructions Discharge Diet: Regular Diet Activity: ambulate with assistive device, weight bearing as tolerated Spine Protocol: Limit bending and stooping. No heavy lifting. Wear brace/collar at all times except when showering and sleeping. Dressing Care: May shower in 2 days (May remove dressing prior to showering and replace with dry dressing after showers.) Additional Dressing Instructions: May Shower 48 hours post-operative and replace with dry dressing after shower. - Problem Maintenance (1) Cervical spine fracture Status: Acute - Follow Up Plan Follow Up Appointments: Richi Barone PA-C [Physician Wax Molder] - (Follow-up in 2 weeks) Disposition: Home, Self-Care Prognosis: Good Rehab Potential: Good I certify that the patient requires SNF services: No Overall status at discharge: patient is progressing back to baseline - Orders For Discharge Prescriptions: HYDROcodone/APAP 10/325MG [[place] 10-325Mg] 1 - 2 tab PO Q4HP PRN #60 tab PRN Reason: Pain Pending Studies Resuscitation Status Do Not Resuscitate Diet Regular Diet Start ThuJan 01 160 Hydrocodone Bitart/Acetaminophen ([place] 10/325mg) 0 tab PO Q4HP PRN PRN Reason: PAIN LEVEL 3-6 Last Admin: 01/03/18 06:53 Dose: 2 tab Admin: 01/03/18 02:21 Dose: 2 tab Admin: 01/02/18 21:53 Dose: 2 tab Admin: 01/02/18 17:02 Dose: 2 tab Admin: 01/02/18 12:45 Dose: 2 tab Admin: 01/02/18 08:26 Dose: 2 tab Admin: 01/02/18 04:33 Dose: 1 tab Admin: 01/02/18 03:38 Dose: 1 tab Potassium Chloride/Sodium Chloride (Nacl 0.9% W/Kcl 20meq 1000ml) 1,000 mls @ 75 mls/hr IV .[id number] [facility] Last Admin: 01/02/18 23:35 Dose: 75 mls/hr Infusion: 01/02/18 23:35 Dose: 75 mls/hr Admin: 01/02/18 18:00 Dose: Not Given Admin: 01/02/18 10:48 Dose: 75 mls/hr Infusion: 01/02/18 09:55 Dose: 75 mls/hr Admin: 01/02/18 08:28 Dose: Not Given Admin: 01/01/18 20:35 Dose: 75 mls/hr Levetiracetam (Keppra) 1,250 mg PO BID [facility] Last Admin: 01/02/18 21:54 Dose: 1,250 mg Admin: 01/02/18 08:26 Dose: 1,250 mg Admin: 01/01/18 20:51 Dose: 1,250 mg Methocarbamol (Robaxin) 750 mg PO TIDP PRN PRN Reason: Muscle Spasm Last Admin: 01/02/18 21:54 Dose: 750 mg Admin: 01/02/18 03:38 Dose: 750 mg Sodium Chloride (Saline Flush) 10 ml IV Q8 [facility] Last Admin: 01/03/18 04:36 Dose: Not Given Admin: 01/02/18 21:56 Dose: Not Given Admin: 01/02/18 14:31 Dose: Not Given Admin: 01/02/18 05:24 Dose: Not Given Admin: 01/01/18 21:54 Dose: Not Given Shift Summary 01/03/18 05:42 Shift Summary by Fili Lujan Posterior and Anterior Cervical fusion C5-6 with Cervical collar in place; CSM checks have been WNL; PVR 338mL followed by x2 with zero PVR; pain managed with prn Robaxin and 2 tabs prn [place] for aching in neck; standing at bedside to use urinal; hoping to go home today. Initialized on 01/03/18 05:42 - END OF NOTE
[2018-01-03] MEDS: levETIRAcetam 500 MG TABLET PO SCH (08:27)
[2018-01-03] MEDS: NACL 0.9% W/KCL 20MEQ 1,000 ML IV SCH (08:28)
--- NOTE | 2018-01-04 07:05 | Operative Note ---
DATE OF OPERATION: 01/01/2018 PREOPERATIVE DIAGNOSIS: Cervical fracture dislocation C5-6. POSTOPERATIVE DIAGNOSIS: Cervical fracture dislocation C5-6. OPERATION PERFORMED: 1. Anterior cervical diskectomy with decompression of neural elements, anterior interbody fusion C5-6 with application of structural allograft interspace C5-6, aspiration iliac crest for osteoprogenitor cells and anterior instrumentation C5-6. 2. Posterior nonsegmental instrumentation using a DePuy/[employer]ynthes lateral mass set. 3. Posterior/posterolateral instrumentation and posterior/posterolateral C5-6. OPERATING SURGEON: Joe Overton MD ENVIRONMENTAL MAINTENANCE WORKER: Richi Barone PA-C INDICATIONS: A gentleman who has a fracture/subluxation of the C5-6 level. He has fractured his facets. He has a listhesis anteriorly and in doing so fracture of the inferior articular process of C5, superior articular process of C6. The right-sided facet is reduced but operatively the capsule had been destroyed and this was probably bilateral perched facets that reduced. The MRI scan does show disc material herniated which necessitates going anteriorly prior to additional reduction and posterior instrumentation. OPERATION IN DETAIL: Informed consent was obtained. The patient was taken to the operating room where he was provided with appropriate anesthetic and prophylactic antibiotics. He was carefully positioned. His anterior neck was prepped sterilely. A standard anterior approach to the spine was performed. I dissected down through the strap muscles arriving on the anterior spine, elevated the longus colli musculature and placed self-retaining retractors. I placed Dallas pin and radiographs were obtained confirming the level of dissection. I placed a second pin and even prior to incising the annulus there was disruption of the disc all the way through the anterior annulus. I performed an additional annulotomy. The operating microscope was brought in. I extensively curetted the disc space, debriding disc off of both endplates and debriding down to subchondral bone. I used a high speed bur to debride down to subchondral bleeding bone. I removed a small shelf of osteophyte. There was disc material that had herniated through the annulus and sat in an extruded position. There was really a complete posterior annular rent. I removed this disc material and using a Gamisfaction hook swept through this epidural region. Additional fragments were removed. I then aspirated the iliac crest for osteoprogenitor cells with a Jamshidi needle. This was applied to the VG2 graft. It was a structural allograft sized to conform to the interspace. This was impacted into the site prepared for it to allow for fusion and for structural support. I selected a Vectra plate also from [employer]. This was held into position. I drilled each of the 4 holes. A screw was applied and locked to the plate. Radiographs were obtained. I placed additional graft in the graft window. I irrigated and closed over a deep drain. The patient was then turned to the prone position. I dissected down to expose spinous process and lamina of C4 through C7. I dissected laterally on the facet capsule at C5-6. There was clearly fractured facet joint on the left. On the right the facet capsule was completely avulsed and really did not require dissection-it just peeled off having already peeled off with the trauma. I identified the appropriate starting position. I passed a drill cephalad and laterally. I placed an appropriate length screw. I decorticated the posterolateral aspect of the spine to allow for fusion. I irrigated extensively. A lateral mass screw was applied C5-C6, both on the right and on the left. I packed morcellized bone graft. Again, after thorough irrigation I compressed. I did do reduction maneuvers; there was still a remnant of the facet. I used a large Edwards to lever this up over the C5 level posterior. I tightened and torqued the sheyla into the top-loading pedicle screws. Low-grade compression was applied across the posterior instrumentation; bone graft was placed against the previously decorticated posterolateral aspect of the spine. I closed over a deep drain with an 0 Vicryl interrupted fashion, 2-0 Vicryl inverted deep dermal, and running subcuticular. The procedure was tolerated well. No complications. Estimated blood loss is 100 mL GDD:[email or web address] Job ID: [id number] Doc ID: [id number] Joe Overton MD
== END 2018-01-03 10:09 | disposition home or self-care (01) | DRG 473 ==
LOC: MEDSUR 06:56
PROVIDERS: ADMIT Orthopaedic Surgery Orthopaedic Surgery of the Spine; ATTEND Orthopaedic Surgery Orthopaedic Surgery of the Spine
CPT/HCPCS: 97161